=== PATIENT | male | born 1960 | race Caucasian/White ===

== ENCOUNTER 2016-11-19 08:02 | Observation (INO) | payer MEDICAID, OTHER ==
[~2016-11-19] VITALS: Ht 190.5 cm; Wt 100.0 kg
[2016-11-19 08:05] VITALS: BP 118/81; PULSE 94; RESP 16; TEMP 97.9; O2SAT 99
[2016-11-19] MEDS ORDERED: ASPI81CH CHEW (08:39)
[2016-11-19] MEDS ORDERED: LISI10TA3 PO (08:39)
[2016-11-19] MEDS ORDERED: CHOL100025 CHEW (08:39)
[2016-11-19] MEDS ORDERED: CYAN1TAB22 (08:39)
[2016-11-19] MEDS ORDERED: ATOR10TA15 PO (08:39)
[2016-11-19] MEDS ORDERED: CETI10CA3 (08:39)
[2016-11-19] MEDS ORDERED: CARV6.25 PO (08:39)
[2016-11-19] MEDS ORDERED: FAMO20TA2 PO (08:39)
[2016-11-19] MEDS ORDERED: SODIUM CHLORIDE 0.9% FLUSH 10 ML FLUSH IVF PRN (08:45)
--- NOTE | 2016-11-19 08:51 | PD ---
HPI Chief Complaint: GI Complaint Time Seen by Provider: 08:45 Travel History International Travel<30 days: No Contact w/Intl Traveler<30days: No Traveled to known affect area: No History of Present Illness HPI 56-year-old male with history of previous prostate cancer, colon cancer status post resection and treatment, CHF, chronic rectal bleeding and hemorrhoids, presents to the ER today because he states that he has been having more red blood per rectum today especially with wiping and trying to make a bowel movement. He states that he has difficulty making bowel movement sometimes and then sometimes is incontinent of stools. He states has been going on since his surgery. He had a colonoscopy done in August which was okay according to his doctor, they had removed one polyp. He also states that he has had 1 month history of intermittent substernal chest discomfort which comes and goes. He reports some mild shortness of breath with it. He is not having any chest pains currently. He has noticed that it happens sometimes with exertion and "heat". He states that his doctors are in [place] and he has recently moved to [place]. Modifying Factors: None Associated Signs & Symptoms: Rectal bleeding, chest pain Risk Factors: History of colon cancer PFSH Past Medical History Cancer: Yes (colon cancer) Cardiovascular Problems: Yes (CHF) High Cholesterol: Yes Chemotherapy: Yes (2013) Congestive Heart Failure: Yes GERD: Yes Hypertension: Yes Implanted Vascular Access Dvce: Yes Triglycerides - High: Yes Past Surgical History Abdominal Surgery: Yes (hernia repair) Prostatectomy: Yes Social History Alcohol Use: Yes Tobacco Use: Yes Substance Use: No Allergies-Medications (Allergen,Severity, Reaction): Coded Allergies: Naproxen (Verified Allergy, Intermediate, 11/19/16) Reported Meds & Prescriptions Reported Meds & Active Scripts Active Reported Zyrtec (Cetirizine HCl) 10 Mg Capsule Famotidine 20 Mg Tab 20 Mg PO HS Vitamin B-12 (Cyanocobalamin) 5,000 Mcg Tab Vitamin D3 (Cholecalciferol) 1,000 Unit Chew 1,000 Units CHEW DAILY Coreg (Carvedilol) 6.25 Mg Tab 6.25 Mg PO BID Atorvastatin (Atorvastatin Calcium) 10 Mg Tab 10 Mg PO HS Lisinopril 10 Mg Tab 10 Mg PO DAILY Aspirin 81 Mg Chew 81 Mg CHEW DAILY Review of Systems Except as stated in HPI: all other systems reviewed are Neg Physical Exam Narrative GENERAL: Well-developed middle age white male patient currently in no acute distress. Awake and oriented 3. SKIN: Focused skin assessment warm/dry. HEAD: Atraumatic. Normocephalic. EYES: Pupils equal and round. No scleral icterus. No injection or drainage. ENT: No nasal bleeding or discharge. Mucous membranes pink and moist. NECK: Trachea midline. No JVD. CARDIOVASCULAR: Regular rate and rhythm. No murmur appreciated. RESPIRATORY: No accessory muscle use. Clear to auscultation. Breath sounds equal bilaterally. GASTROINTESTINAL: Abdomen soft, non-tender, nondistended. Hepatic and splenic margins not palpable. RECTAL EXAM: No masses or tenderness, stool is brown. MUSCULOSKELETAL: No obvious deformities. No clubbing. No cyanosis. No edema. NEUROLOGICAL: Awake and alert. No obvious cranial nerve deficits. Motor grossly within normal limits. Normal speech. PSYCHIATRIC: Appropriate mood and affect; insight and judgment normal. Data Data Last Documented VS Vital Signs Date Time Temp Pulse Resp B/P Pulse Ox O2 Delivery O2 Flow Rate FiO2 11/19/16 08:28 18 11/19/16 08:05 97.9 94 118/81 99 Orders Electrocardiogram (11/19/16 ) Complete Blood Count With Diff (11/19/16 08:31) Comprehensive Metabolic Panel (11/19/16 08:31) Prothrombin Time / Inr (Pt) (11/19/16 08:31) Act Partial Throm Time (Ptt) (11/19/16 08:31) Type And Screen (11/19/16 08:31) Ecg Monitoring (11/19/16 08:31) Iv Access Insert/Monitor (11/19/16 08:31) Oximetry (11/19/16 08:31) Sodium Chloride 0.9% Flush (Ns Flush) (11/19/16 08:45) Ckmb (Isoenzyme) Profile (11/19/16 08:45) Troponin I (11/19/16 08:45) Chest, Single Ap (11/19/16 08:45) CKMB (11/19/16 08:40) CKMB% (11/19/16 08:40) Labs Laboratory Tests Test 11/19/16 08:40 White Blood Count 3.4 TH/MM3 Red Blood Count 3.79 MIL/MM3 Hemoglobin 12.7 GM/DL Hematocrit 35.4 % Mean Corpuscular Volume 93.5 FL Mean Corpuscular Hemoglobin 33.5 PG Mean Corpuscular Hemoglobin 35.8 % Concent Red Cell Distribution Width 13.8 % Platelet Count 244 TH/MM3 Mean Platelet Volume 7.5 FL Neutrophils (%) (Auto) 43.1 % Lymphocytes (%) (Auto) 36.9 % Monocytes (%) (Auto) 14.0 % Eosinophils (%) (Auto) 3.9 % Basophils (%) (Auto) 2.1 % Neutrophils # (Auto) 1.5 TH/MM3 Lymphocytes # (Auto) 1.3 TH/MM3 Monocytes # (Auto) 0.5 TH/MM3 Eosinophils # (Auto) 0.1 TH/MM3 Basophils # (Auto) 0.1 TH/MM3 CBC Comment DIFF FINAL Differential Comment Prothrombin Time 10.2 SEC Prothromb Time International 0.9 RATIO Ratio Activated Partial 27.8 SEC Thromboplast Time Sodium Level 141 MEQ/L Potassium Level 4.0 MEQ/L Chloride Level 108 MEQ/L Carbon Dioxide Level 22.0 MEQ/L Anion Gap 11 MEQ/L Blood Urea Nitrogen 20 MG/DL Creatinine 0.77 MG/DL Estimat Glomerular Filtration 105 ML/MIN Rate Random Glucose 98 MG/DL Calcium Level 8.3 MG/DL Total Bilirubin 0.3 MG/DL Aspartate Amino Transf 39 U/L (AST/SGOT) Alanine Aminotransferase 38 U/L (ALT/SGPT) Alkaline Phosphatase 78 U/L Total Creatine Kinase 108 U/L Creatine Kinase MB 1.1 NG/ML Troponin I LESS THAN 0.02 NG/ML Total Protein 6.5 GM/DL Albumin 3.4 GM/DL Blood Type O POSITIVE Antibody Screen NEGATIVE Blood Bank Comment [facility] Medical Decision Making Medical Screen Exam Complete: Yes Emergency Medical Condition: Yes Medical Record Reviewed: Yes Interpretation(s) EKG shows NSR, no ST elevation or depression, and no arrhythmias. No significant T-wave inversions. Laboratory Tests Test 11/19/16 08:40 White Blood Count 3.4 TH/MM3 (4.0-11.0) Red Blood Count 3.79 MIL/MM3 (4.50-5.90) Hemoglobin 12.7 GM/DL (13.0-17.0) Hematocrit 35.4 % (39.0-51.0) Monocytes (%) (Auto) 14.0 % (0.0-8.0) Basophils (%) (Auto) 2.1 % (0.0-2.0) Neutrophils # (Auto) 1.5 TH/MM3 (1.8-7.7) Chloride Level 108 MEQ/L (98-107) Blood Urea Nitrogen 20 MG/DL (7-18) Calcium Level 8.3 MG/DL (8.5-10.1) Aspartate Amino Transf 39 U/L (15-37) (AST/SGOT) Troponin I LESS THAN 0.02 NG/ML (0.02-0.05) Last 24 hours Impressions Chest X-Ray 11/19/16 7044 Signed Impressions: Service Date/Time: Saturday, November 19, 2016 08:56 - CONCLUSION: No acute disease. Keith Cazares MD FACR Differential Diagnosis Rectal bleeding, chest painsrule out ACS, hemorrhoidal bleeding versus colon cancer Narrative Course Chest x-ray did not show any signs of acute processes. EKG was otherwise unremarkable for any acute processes. Patient does not have significant bleeding at this time although he does have trace blood in his stool. Considering colon cancer history, he probably should get this checked out further with a colorectal doctor or GI doctor. Patient states he has been having this kind of bleeding intermittently now for the past few months but has been hesitant to follow-up with GI since he did not like his last GI doctor. At this point, does not appear to be a new or acute process. However, I am concerned about the chest pain that he is having and although the workup is currently negative, I would like him to get further cardiac evaluation. He is admitted to chest pain center for further cardiac workup. He states he will follow-up after workup with GI of his own choosing for further evaluation of blood in the stool. [facility] Point of Care Internal Pos. & Neg. Controls: Passed Fecal Specimen Occult Blood: Positive Diagnosis Primary Impression: Chest pain Additional Impression: Blood in the stool Admitting Information Admitting Physician Requests: it Toby Sprague MD Nov 19, 2016 08:51
[2016-11-19 08:53] LABS: AUTOMATED NEUTROPHIL # 1.5 TH/MM3 (1.8-7.7); BASOPHIL # 0.1 TH/MM3 (0-0.2); BASOPHIL % 2.1 % (0.0-2.0); EOSINOPHIL # 0.1 TH/MM3 (0-0.4); EOSINOPHIL % 3.9 % (0.0-4.0); HEMATOCRIT 35.4 % (39.0-51.0); HEMO FLAGS DIFF FINAL; LYMPH % 36.9 % (9.0-44.0); LYMPHOCYTE # 1.3 TH/MM3 (1.0-4.8); MEAN CELL VOLUME 93.5 FL (80.0-100.0); MEAN CORPUSCULAR HEMOGLOBIN 33.5 PG (27.0-34.0); MEAN CORPUSCULAR HGB CONC 35.8 % (32.0-36.0); NEUT % 43.1 % (16.0-70.0); PLATELET COUNT 244 TH/MM3 (150-450); RED BLOOD COUNT 3.79 MIL/MM3 (4.50-5.90); RED CELL DISTRIBUTION WIDTH 13.8 % (11.6-17.2); WHITE BLOOD COUNT 3.4 TH/MM3 (4.0-11.0)
[2016-11-19 09:05] LABS: APTT (PATIENT) 27.8 SEC (24.3-30.1); INTERNATIONAL NORMALIZED RATIO 0.9 RATIO; PROTHROMBIN TIME - PATIENT 10.2 SEC (9.8-11.6)
--- NOTE | 2016-11-19 09:11 | RADRPT ---
EXAM DATE/TIME: 11/19/2016 08:56 [facility] COMPARISON: No previous studies available for comparison. INDICATIONS : Chest pain MEDICAL HISTORY : Chronic obstructive pulmonary disease. SURGICAL HISTORY : None. ENCOUNTER: Initial ACUITY: 1 week PAIN SCORE: 2/10 LOCATION: Bilateral chest FINDINGS: A single view of the chest demonstrates the lungs to be symmetrically aerated without evidence of mas s, infiltrate or effusion. [id number] in good position. The cardiomediastinal contours are unrem arkable. Osseous structures are intact. CONCLUSION: No acute disease. Keith Cazares MD FACR on November 19, 2016 at 9:09 Board Certified Radiologist. This report was verified electronically.
[2016-11-19 09:16] LABS: ALT (GPT) 38 U/L (12-78)
[2016-11-19 09:18] LABS: ALKALINE PHOSPHATASE 78 U/L (45-117); TOTAL BILIRUBIN ADULT 0.3 MG/DL (0.2-1.0)
[2016-11-19 09:19] LABS: ANION GAP 11 MEQ/L (5-15); AST (GOT) 39 U/L (15-37); BLOOD UREA NITROGEN 20 MG/DL (7-18); CHLORIDE 108 MEQ/L (98-107); GLOMERULAR FILTRATION RATE 105 ML/MIN (>89); SODIUM (NA) 141 MEQ/L (136-145)
[2016-11-19 09:28] LABS: CREATINE KINASE 108 U/L (39-308)
[2016-11-19 09:41] LABS: CKMB 1.1 NG/ML (0.5-3.6)
[2016-11-19 10:45] VITALS: BP 126/73; PULSE 67; RESP 18; O2SAT 96
[2016-11-19] MEDS ORDERED: cloNIDine HCL 0.1 MG TAB PO PRN (11:15)
[2016-11-19] MEDS ORDERED: ONDANSETRON HCL 4 MG/2 ML VIAL IV PRN (11:15)
[2016-11-19] MEDS ORDERED: ACETAMINOPHEN 500 MG CPLT PO PRN (11:15)
[2016-11-19] MEDS ORDERED: ALPRAZolam 0.25 MG TAB PO PRN (11:15)
[2016-11-19] MEDS ORDERED: ACETAMINOPHEN/HYDROcodone 325 MG/7.5 MG TAB PO PRN (11:15)
[2016-11-19] MEDS ORDERED: PANTOPRAZOLE SOD 40 MG DELAYED RELEASE TAB PO SCH (11:15)
[2016-11-19] MEDS ORDERED: RESP: ALBUTEROL 2.5 MG/IPRATROPIUM 0.5 MG NEB (PRN) INH (11:15)
[2016-11-19] MEDS ORDERED: SODIUM CHLORIDE 0.9% FLUSH 5 ML FLUSH IVF PRN (11:15)
--- NOTE | 2016-11-19 11:24 | HHI.HP ---
HPI Primary Care Physician Non-Staff Chief Complaint Chest pain and blood on toilet paper History of Present Illness This is a 56-year-old male with stated history of prostate cancer with prostatectomy, colon cancer with colon resection, colostomy and colostomy reversal followed by chemotherapy and radiation therapy, stated history of congestive heart failure, hypertension, hyperlipidemia, and chronic blood when wiping with old paper. He states that he presents to the ED to evaluate chest discomfort as been intermittent for the past 2 weeks he describes as someone pressing on his chest. Nonexertional related. He seems to believe it begins when he smokes a cigarette. Occasional shortness breath, occasional diaphoresis but denies nausea. States he was told he had congestive heart failure in 2013 and advised hospitalized for that that is when they discovered the colon cancer. States he's never had a cardiac catheterization. Last stress test he believes is 2011 and he believes that that was normal. This all occurred in [place]. He moved here a month ago. Patient states that he notices red blood on the toilet paper when he wipes after having a bowel movement. This is been ongoing for 2 years. He had a colonoscopy and endoscopy April last year while this is going on and other than having a polyp removed states that really looked fine. He is not have a nuisance wildlife trapper in this area. He also states that his bowel movements are always normal. This is been ongoing for years. There are days that he is constipated and there are days that he is incontinent of stool. His last bowel movement was last evening. He states the stool or brown but again when he wipes with toilet paper there'll be red blood on the told paper. Patient denies recent illness. Denies fevers or chills. Review of Systems General: Patient denies fevers, chills recent. HEENT: Patient denies headache, sore throat, difficulty swallowing. Cardiovascular: Has the chest discomfort as mentioned above. Denies sensation of heart beating rapidly or irregularly. No syncope. Occasional diaphoresis. Respiratory: Occasional shortness of breath. Denies shortness inspirational chest discomfort. Denies coughing wheezing or hemoptysis. GI: States there is red blood on the toilet paper after having bowel movement but states his stools brown. Denies black or tarry stools. Occasional constipation and occasional fecal incontinence. Patient denies nausea, vomiting , diarrhea, abdominal pain. Musculoskeletal: Patient denies joint pain or edema. Denies calf pain or edema. Neurovascular: Patient denies numbness, tingling, weakness in extremities. Denies headache. Endocrine: Denies polyuria and polydipsia. Hematologic: Denies easy bruising. Skin: Denies rash or itching. Past Family Social History Allergies: Coded Allergies: Naproxen (Verified Allergy, Intermediate, 11/19/16) Past Medical History Hypertension, hyperlipidemia, colon cancer with resection and radiation and chemotherapy. States her congestive heart failure in 2013. Prostate cancer with prostatectomy. Hemorrhoids. Tobacco abuse. GERD. Denies diabetes and known CAD. Past Surgical History : Resection, colostomy with colostomy reversal, prostatectomy, hernia repair, multiple colonoscopies and endoscopies. Reported Medications Reported Meds & Active Scripts Active Reported Zyrtec (Cetirizine HCl) 10 Mg Capsule Famotidine 20 Mg Tab 20 Mg PO HS Vitamin B-12 (Cyanocobalamin) 5,000 Mcg Tab Vitamin D3 (Cholecalciferol) 1,000 Unit Chew 1,000 Units CHEW DAILY Coreg (Carvedilol) 6.25 Mg Tab 6.25 Mg PO BID Atorvastatin (Atorvastatin Calcium) 10 Mg Tab 10 Mg PO HS Lisinopril 10 Mg Tab 10 Mg PO DAILY Aspirin 81 Mg Chew 81 Mg CHEW DAILY Active Ordered Medications Current Medications Medications (Trade) Dose Ordered Sig/Christina Route Start Time Stop Time Status Last Admin (NS Flush) 2 ml UNSCH PRN IVF 11/19/16 08:45 Family History His father age 59 of a myocardial infarction. Social History Patient smokes one pack of cigarettes daily. He drinks on average 6 beers per day. Denies illicit drugs. Physical Exam Vital Signs Vital Signs Date Time Temp Pulse Resp B/P Pulse Ox O2 Delivery O2 Flow Rate FiO2 11/19/16 10:45 67 18 126/73 96 Room Air 11/19/16 08:28 18 11/19/16 08:05 97.9 94 16 118/81 99 Physical Exam GENERAL: This is a well-nourished, well-developed patient, in no apparent distress. Patient speaks in clear complete sentences. Patient is pleasant. HEENT: Head is atraumatic and normocephalic. Neck is supple without lymphadenopathy and trachea is midline. No JVD or carotid bruits. CARDIOVASCULAR: Regular rate and rhythm without murmurs, gallops, or rubs. RESPIRATORY: Chest wall is tender however it does not feel similar to the discomfort he has been having. Clear to auscultation. Breath sounds equal bilaterally. No wheezes, rales, or rhonchi. No use of accessory muscles. GASTROINTESTINAL: Abdomen is nontender, nondistended. Abdomen soft. No obvious pulsatile mass or bruit. No CVA tenderness. Strong femoral pulses bilaterally. Normal bowel sounds in all quadrants. MUSCULOSKELETAL: Patient is moving upper and lower extremities freely. No calf tenderness or edema, no Homans sign. Strong pulses in upper and lower extremities. NEUROLOGICAL: Patient is alert and oriented. Cranial nerves 2-12 are grossly intact. No focal deficits and speech is clear. SKIN: No rash and turgor is normal. Laboratory Laboratory Tests Test 11/19/16 08:40 White Blood Count 3.4 Red Blood Count 3.79 Hemoglobin 12.7 Hematocrit 35.4 Mean Corpuscular Volume 93.5 Mean Corpuscular Hemoglobin 33.5 Mean Corpuscular Hemoglobin 35.8 Concent Red Cell Distribution Width 13.8 Platelet Count 244 Mean Platelet Volume 7.5 Neutrophils (%) (Auto) 43.1 Lymphocytes (%) (Auto) 36.9 Monocytes (%) (Auto) 14.0 Eosinophils (%) (Auto) 3.9 Basophils (%) (Auto) 2.1 Neutrophils # (Auto) 1.5 Lymphocytes # (Auto) 1.3 Monocytes # (Auto) 0.5 Eosinophils # (Auto) 0.1 Basophils # (Auto) 0.1 CBC Comment DIFF FINAL Differential Comment Prothrombin Time 10.2 Prothromb Time International 0.9 Ratio Activated Partial 27.8 Thromboplast Time Sodium Level 141 Potassium Level 4.0 Chloride Level 108 Carbon Dioxide Level 22.0 Anion Gap 11 Blood Urea Nitrogen 20 Creatinine 0.77 Estimat Glomerular Filtration 105 Rate Random Glucose 98 Calcium Level 8.3 Total Bilirubin 0.3 Aspartate Amino Transf 39 (AST/SGOT) Alanine Aminotransferase 38 (ALT/SGPT) Alkaline Phosphatase 78 Total Creatine Kinase 108 Creatine Kinase MB 1.1 Troponin I LESS THAN 0.02 Total Protein 6.5 Albumin 3.4 Blood Type O POSITIVE Antibody Screen NEGATIVE Blood Bank Comment Result Diagram: 11/19/1640 11/19/16 0840 Imaging Last 48 hours Impressions Chest X-Ray 11/19/16 0845 Signed Impressions: Service Date/Time: Saturday, November 19, 2016 08:56 - CONCLUSION: No acute disease. Keith Cazares MD FACR Course Initial EKG is sinus rhythm, rate of 81, no significant ST segment depressions or elevations. Assessment and Plan Assessment and Plan * Chest pain: Patient will have serial cardiac enzymes and EKGs for ruling out purposes. He will be seen by Dr. Hills in the chest pain center. He will undergo a Lexiscan. He'll be discharged home if his Lexiscan was nonischemic. He should follow-up local physician. * GI bleed: Patient states this is been going on for 2 years at which time he has had colonoscopies with most recently being April 2016 having a polyp removed. Otherwise he states that was normal. I spoke with the ER physician Dr. Sprague regarding the patient's GI bleed. She did rectal exam and states that stool was brown however the stool was trace Hemoccult positive. His hemoglobin and hematocrit are stable. He will need to follow-up with a nuisance wildlife trapper. * Hypertension: Continue current medication. * Hyperlipidemia: Continue current medication. * GERD: We'll start Protonix. * Tobacco abuse: Patient has been counseled on importance of smoking cessation. Patient is stable at this time. He is agreeable to this plan. Layton Mascorro Nov 19, 2016 11:24
[2016-11-19 11:46] VITALS: O2SAT 97
[2016-11-19 11:52] VITALS: O2SAT 94
[2016-11-19] MEDS ORDERED: traMADol/ACETAMINOPHEN 37.5/325 1 TAB PO ONE (12:15)
[2016-11-19 12:36] LABS: CREATINE KINASE 82 U/L (39-308)
[2016-11-19 13:00] VITALS: BP 142/76
[2016-11-19] MEDS ORDERED: REGADENOSON INJ 0.4 MG/5 ML SYR ONE (14:03)
--- NOTE | 2016-11-19 15:26 | TR ---
Date Performed: 11/19/2016 Time Performed: 14:35:25 DOCTOR: Raimundo Hills DRUG LIST: CLINICAL HISTORY: REASON FOR TEST: CHEST PAIN REASON FOR ENDING: OBSERVATION: CONCLUSION: Lexiscan stress test was performed under standard four minute protocol. Radionuclide was injected one minute prior to ending the test. Developed dyspnea, chest pain and headache. Occass ional PACs were noted. No electrocardiographic abnormalities were present to suggest ischemia. Recove jesus was quick and uneventful with resolution of symptoms. Nuclear imaging and interpretation are pend ing. COMMENTS:
--- NOTE | 2016-11-19 16:13 | RADRPT ---
EXAM DATE/TIME: 11/19/2016 13:56 [facility] COMPARISON: No previous studies available for comparison. INDICATIONS : Substernal chest with dyspnea for 1 month. Angina. DOSE: 35 mCi Tc99m Myoview at stress. 10.9 mCi Tc99m Myoview at rest. 0.4 mg Lexiscan STRESS SYMPTOMS: Dyspnea, headache and chest pain. EJECTION FRACTION: 50% MEDICAL HISTORY : Hypercholesterolemia. Gastroesophageal reflux disease. Congestive heart failure. Hypertension. Smoker . SURGICAL HISTORY : Hernia repair. ENCOUNTER: Initial ACUITY: 1 month PAIN SCALE: 5/10 LOCATION: Substernal chest TECHNIQUE: The patient underwent pharmacologic stress with infusion of prescribed dose. Continuous ECG tracing was monitored during stress. Gated SPECT imaging was performed after stress and conventional SPECT i maging was performed at rest. The examination was performed on a SPECT/CT scanner, both attenuation and non-corrected datasets were reviewed. FINDINGS: DISTRIBUTION: The maximum perfused segment at stress is in the anterior wall. PERFUSION STUDY: The pattern of perfusion at stress is within normal limits, with regional variation of perfusion with in 25%. No evidence of redistribution. There is apical thinning. The summed stress score is 4. GATED STUDY: There is intact wall motion and thickening without hypokinetic or dyskinetic segments. CONCLUSION: 1. No evidence of stress-induced ischemia. 2. Intact wall motion with 50% ejection fraction. RISK CATEGORY: Low (<1% Annual Mortality Rate) Stefan Noyola MD on November 19, 2016 at 16:07 Board Certified Radiologist. This report was verified electronically.
[2016-11-19 16:24] VITALS: BP 135/82; PULSE 62; RESP 18; TEMP 96.8; O2SAT 96
--- NOTE | 2016-11-19 16:39 | HHI.DCPOC ---
Discharge Care Plan Diagnosis: (1) Chest pain (2) Hypertension (3) Hyperlipidemia (4) GERD (gastroesophageal reflux disease) (5) Tobacco abuse (6) Rectal bleeding Goals to Promote Your Health * To prevent worsening of your condition and complications * To maintain your health at the optimal level Directions to Meet Your Goals Take your medications as prescribed Follow your dietary instruction Follow activity as directed Keep your appointments as scheduled Take your immunizations and boosters as scheduled If your symptoms worsen call your PCP, if no PCP go to Urgent Care Center or Emergency Room Smoking is Dangerous to Your Health. Avoid second hand smoke Call the 24-hour hour crisis hotline for domestic abuse at Layton Mascorro Nov 19, 2016 16:39
[2016-11-19 16:48] LABS: CREATINE KINASE 96 U/L (39-308)
--- NOTE | 2016-11-19 18:10 | EKG ---
Date Performed: 11/19/2016 Time Performed: 08:29:39 PTAGE: 56 years EKG: Sinus rhythm NORMAL ECG NO PREVIOUS TRACING DOCTOR: Raimundo Hills Interpretating Date/Time 11/19/2016 18:09:31
--- NOTE | 2016-11-19 18:12 | EKG ---
Date Performed: 11/19/2016 Time Performed: 15:38:44 PTAGE: 56 years EKG: Sinus rhythm NORMAL ECG PREVIOUS TRACING : 11/19/2016 08.29 DOCTOR: Raimundo Hills Interpretating Date/Time 11/19/2016 18:10:35
--- NOTE | 2016-11-19 18:12 | EKG ---
Date Performed: 11/19/2016 Time Performed: 11:38:50 PTAGE: 56 years EKG: Sinus rhythm NORMAL ECG PREVIOUS TRACING : 11/19/2016 08.29 DOCTOR: Raimundo Hills Interpretating Date/Time 11/19/2016 18:10:04
[2016-11-19] MEDS ORDERED: SODIUM CHLORIDE 0.9% FLUSH 5 ML FLUSH IVF SCH (21:00)
== END 2016-11-19 18:20 | disposition home or self-care (01) ==
LOC: NEPC 08:02 → NEDA 10:01 → NEPGCP 13:17
PROVIDERS: ADMIT Family Medicine; ATTEND Family Medicine
DX: R07.89 Other chest pain (principal); K92.2 Gastrointestinal hemorrhage, unspecified; I11.0 Hypertensive heart disease with heart failure; I50.9 Heart failure, unspecified; E78.00 Pure hypercholesterolemia, unspecified; E78.5 Hyperlipidemia, unspecified; K21.9 Gastro-esophageal reflux disease without esophagitis; F17.210 Nicotine dependence, cigarettes, uncomplicated; Z85.038 Personal history of other malignant neoplasm of large intestine; Z85.46 Personal history of malignant neoplasm of prostate; Z92.21 Personal history of antineoplastic chemotherapy; Z92.3 Personal history of irradiation; Z88.8 Allergy status to other drugs, medicaments and biological substances; Z79.82 Long term (current) use of aspirin
CPT/HCPCS: 71010; 78452; 80053; 82550; 82552; 84484; 85025; 85610; 85730; 86850; 86900; 86901; 93005; 93017; 99285; A9502; G0378; J2785